=== PATIENT | female | born 1985 ===

== ENCOUNTER 2021-11-25 12:55 | Emergency (ER) | payer SELFPAY ==
[~2021-11-25] VITALS: Ht 157.5 cm; Wt 72.6 kg
--- NOTE | 2021-11-25 13:10 | ED Chest Pain ---
General Chief Complaint: Chest Pain Stated Complaint: CHEST PAIN Nursing Triage Note: PT TO RM 4 VIA WC W C/O CP SX APPROX 0900 MID CHEST, PAIN RELIEVED BY DRINKING MILK. PT A&OX4. Source: patient Exam Limitations: no limitations History of Present Illness Date Seen by Provider: Nov 25, 2021 Time Seen by Provider: 13:09 Initial Comments To ER by private vehicle from home with reports of central chest pain rated at 9 out of 10 that started at 9 AM this morning while at work. No fevers chills cough or shortness of breath. She occasionally has this at home and drinking milk helps. She has had this before while in the [facility] and was going to see a doctor but decided to just pray about it instead. She takes no medications. Timing/Duration: changing over time Severity/Quality: moderate, severe Location: central Radiation: no radiation Activities at Onset: none Prior CP/Workup: no prior chest pain ASA po SECURITY ATTENDANT: No NTG SL SECURITY ATTENDANT: No Associated Symptoms: denies symptoms Allergies and Home Medications Allergies Coded Allergies: No Known Drug Allergies (Unverified , 11/25/21) Patient Home Medication List Home Medication List Reviewed: Yes Review of Systems Review of Systems Constitutional: see HPI EENTM: No Symptoms Reported Respiratory: No Symptoms Reported Cardiovascular: See HPI, Chest Pain Gastrointestinal: No Symptoms Reported Genitourinary: No Symptoms Reported Musculoskeletal: no symptoms reported Skin: no symptoms reported Psychiatric/Neurological: No Symptoms Reported Endocrine: No Symptoms Reported Hematologic/Lymphatic: No Symptoms Reported Past Lgqxpbd-Plszig-Mlarrf Hx Patient Social History Tobacco Use?: No Use of E-Cig and/or Vaping dev: No Substance use?: No Alcohol Use?: No Immunizations Up To Date Influenza Vaccine Up-to-Date: No; Not Current First/Initial COVID19 Vaccinat: NONE Second COVID19 Vaccination Foreign: NONE Third COVID19 Vaccination Date: NONE 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 oz. kg; 29.00 BMI Method: General Appearance: No Apparent Distress, WD/WN HEENT: PERRL/EOMI, TMs Normal Neck: Full Range of Motion, Normal Inspection Respiratory: Lungs Clear, Normal Breath Sounds, No Accessory Muscle Use, No Respiratory Distress Cardiovascular: Regular Rate, Rhythm, Normal Peripheral Pulses Gastrointestinal: Normal Bowel Sounds, Non Tender, Soft Extremity: Normal Capillary Refill, Normal Inspection Neurologic/Psychiatric: Alert, Oriented x3 Skin: Normal Color, Warm/Dry Progress/Results/Core Measures Results/Orders Lab Results Laboratory Tests Test 11/25/21 13:12 Range/Units White Blood Count 9.1 4.3-11.0 10^3/uL Red Blood Count 4.87 3.80-5.11 10^6/uL Hemoglobin 13.3 11.5-16.0 g/dL Hematocrit 40 35-52 % Mean Corpuscular Volume 82 80-99 fL Mean Corpuscular Hemoglobin 27 25-34 pg Mean Corpuscular Hemoglobin Concent 33 32-36 g/dL Red Cell Distribution Width 11.9 10.0-14.5 % Platelet Count 345 130-400 10^3/uL Mean Platelet Volume 10.1 9.0-12.2 fL Immature Granulocyte % (Auto) 0 % Neutrophils (%) (Auto) 66 42-75 % Lymphocytes (%) (Auto) 24 12-44 % Monocytes (%) (Auto) 7 0-12 % Eosinophils (%) (Auto) 3 0-10 % Basophils (%) (Auto) 1 0-10 % Neutrophils # (Auto) 6.0 1.8-7.8 10^3/uL Lymphocytes # (Auto) 2.2 1.0-4.0 10^3/uL Monocytes # (Auto) 0.6 0.0-1.0 10^3/uL Eosinophils # (Auto) 0.3 0.0-0.3 10^3/uL Basophils # (Auto) 0.1 0.0-0.1 10^3/uL Immature Granulocyte # (Auto) 0.0 0.0-0.1 10^3/uL Prothrombin Time 13.7 12.2-14.7 SEC INR Comment 1.0 0.8-1.4 Activated Partial Thromboplast Time 30 24-35 SEC D-Dimer 0.44 0.00-0.49 UG/ML Sodium Level 139 135-145 MMOL/L Potassium Level 4.1 3.6-5.0 MMOL/L Chloride Level 103 98-107 MMOL/L Carbon Dioxide Level 25 21-32 MMOL/L Anion Gap 11 5-14 MMOL/L Blood Urea Nitrogen 12 7-18 MG/DL Creatinine 0.93 0.60-1.30 MG/DL Estimat Glomerular Filtration Rate 81 BUN/Creatinine Ratio 13 Glucose Level 143 H 70-105 MG/DL Calcium Level 9.2 8.5-10.1 MG/DL Corrected Calcium 9.2 8.5-10.1 MG/DL Magnesium Level 2.1 1.6-2.4 MG/DL Total Bilirubin 0.6 0.1-1.0 MG/DL Aspartate Amino Transf (AST/SGOT) 395 H 5-34 U/L Alanine Aminotransferase (ALT/SGPT) 222 H 0-55 U/L Alkaline Phosphatase 114 40-136 U/L Myoglobin 42.4 10.0-92.0 NG/ML Troponin I < 0.028 <0.028 NG/ML B-Type Natriuretic Peptide < 10.0 <100.0 PG/ML Total Protein 8.3 H 6.4-8.2 GM/DL Albumin 4.0 3.2-4.5 GM/DL My Orders Orders - DERECK GROSS APRN Ekg Tracing (11/25/21 12:59) Cbc With Automated Diff (11/25/21 13:04) Magnesium (11/25/21 13:04) Chest 1 View, Ap/Pa Only (11/25/21 13:04) Ekg Tracing (11/25/21 13:04) Comprehensive Metabolic Panel (11/25/21 13:04) Myoglobin Serum (11/25/21 13:04) Protime With Inr (11/25/21 13:04) Partial Thromboplastin Time (11/25/21 13:04) O2 (11/25/21 13:04) Monitor-Rhythm Ecg Trace Only (11/25/21 13:04) Lipid Panel (11/26/21 06:00) Ed Iv/Invasive Line Start (11/25/21 13:04) Bnp Hebert (11/25/21 13:04) Fibrin Degradation Products (11/25/21 13:04) Troponin I Hebert (11/25/21 13:04) Antacid Suspension (Mylanta Suspension (11/25/21 13:15) Lidocaine 2% Viscous 15 Ml (Xylocaine Vi (11/25/21 13:15) Medications Given in ED Current Medications Medications Dose Ordered Sig/Mana Route Start Time Stop Time Status Last Admin Dose Admin Al Hydrox/Mg Hydrox/Simethicone 30 ml ONCE ONCE PO 11/25/21 13:15 11/25/21 13:16 DC 11/25/21 13:22 30 ML Lidocaine HCl 15 ml ONCE ONCE PO 11/25/21 13:15 11/25/21 13:16 DC 11/25/21 13:22 15 ML Vital Signs/I&O 11/25/21 12:55 Temp 36.6 Pulse 64 Resp 20 B/P (MAP) 122/68 (86) Pulse Ox 98 O2 Delivery Room Air Blood Pressure Mean: 86 Departure Communication (Admissions) 1421-chest pain is gone. I will start her on a PPI. She will need to follow-up with primary care for the elevated LFTs. Impression Primary Impression: Esophagitis Disposition: HOME, SELF-CARE Condition: Stable Departure-Patient Inst. Decision time for Depature: 14:05 Referrals: [facility] (PCP/Family) Primary Care Physician Patient Instructions: Acid Reflux, Adult and Adolescent ED Scripts Pantoprazole Sodium (Pantoprazole Sodium) 40 Mg Tablet. 40 MG PO DAILY, #30 TAB Prov: DERECK GROSS APRN 11/25/21 Work/School Note: Work Release Form Date Seen in the Emergency Department: Nov 25, 2021 Return to Work: Nov 26, 2021 Restrictions: No Restrictions DERECK GROSS APRN Nov 25, 2021 13:10
[2021-11-25] MEDS ORDERED: ANTACID SUSP 30 ML UDC (MYLANTA) PO ONE (13:15)
[2021-11-25] MEDS ORDERED: LIDOCAINE 2% VISCOUS 15 ML UDC PO ONE (13:15)
[2021-11-25 13:24] LABS: BASOPHILS # (AUTO) 0.1 10^3/uL (0.0-0.1); BASOPHILS % (AUTO) 1 % (0-10); EOSINOPHILS # (AUTO) 0.3 10^3/uL (0.0-0.3); EOSINOPHILS % (AUTO) 3 % (0-10); HEMATOCRIT 40 % (35-52); HEMOGLOBIN 13.3 g/dL (11.5-16.0); LYMPHOCYTES # (AUTO) 2.2 10^3/uL (1.0-4.0); LYMPHOCYTES % (AUTO) 24 % (12-44); MEAN CORPUSCULAR HEMOGLOBIN 27 pg (25-34); MEAN CORPUSCULAR HGB CONC 33 g/dL (32-36); MEAN CORPUSCULAR VOLUME 82 fL (80-99); MEAN PLATELET VOLUME 10.1 fL (9.0-12.2); MONOCYTES # (AUTO) 0.6 10^3/uL (0.0-1.0); MONOCYTES % (AUTO) 7 % (0-12); NEUTROPHILS % (AUTO) 66 % (42-75); PLATELET COUNT 345 10^3/uL (130-400); WHITE BLOOD COUNT 9.1 10^3/uL (4.3-11.0)
[2021-11-25 13:34] LABS: POTASSIUM 4.1 MMOL/L (3.6-5.0)
[2021-11-25 13:35] LABS: CALCIUM 9.2 MG/DL (8.5-10.1)
[2021-11-25 13:36] LABS: TOTAL PROTEIN 8.3 GM/DL (6.4-8.2)
[2021-11-25 13:38] LABS: BILIRUBIN,TOTAL 0.6 MG/DL (0.1-1.0)
[2021-11-25 13:39] LABS: PROTHROMBIN TIME PATIENT 13.7 SEC (12.2-14.7)
[2021-11-25 13:40] LABS: CREATININE SERUM 0.93 MG/DL (0.60-1.30)
[2021-11-25 13:42] LABS: MAGNESIUM 2.1 MG/DL (1.6-2.4)
--- NOTE | 2021-11-25 13:53 | Diagnostic Imaging Report ---
EXAMINATION: Chest, 1 view. HISTORY: Chest pain. COMPARISON: None available. FINDINGS: Heart size and pulmonary vasculature are normal. The lungs are clear without consolidation, pleural effusion, or pneumothorax. The osseous structures are intact. IMPRESSION: No acute radiographic abnormality in the chest. Dictated by: Dictated on workstation # [id number]
[2021-11-25] MEDS ORDERED: PANT40TA52 PO (14:22)
[2021-11-25 14:45] VITALS: BP 114/69
== END 2021-11-25 14:40 | disposition home or self-care (01) ==
LOC: ER 12:56
DX: K20.90 Esophagitis, unspecified without bleeding (principal); Z28.310 Unvaccinated for COVID-19
CPT/HCPCS: 36415; 71045; 80053; 83735; 83874; 83880; 84484; 85025; 85379; 85610; 85730; 93005; 93041

== ENCOUNTER 2021-11-30 07:38 | Inpatient (IN) | payer BC ==
[~2021-11-30] VITALS: Ht 152.6 cm; Wt 76.2 kg
[~2021-11-30 07:38] MED LIST: PANT40TA52 PO
[2021-11-30] MEDS ORDERED: KETOROLAC 30 MG/ML VIAL IVP ONE (08:00)
[2021-11-30] MEDS ORDERED: NS IV 1000 ML 1,000 ML IV SCH ×2 (08:00→11:15)
[2021-11-30] MEDS ORDERED: ONDANSETRON 4 MG/2 ML (SDV) Z0FRAN IVP ONE (08:00)
--- NOTE | 2021-11-30 08:03 | ED Abdominal Pain ---
General Chief Complaint: Abdominal/GI Problems Stated Complaint: LOWER ABD PAIN Nursing Triage Note: ARRIVED VIA EMS FROM HOME WITH COMPLAINTS OF ABD PAIN X1 WEEK. ATTEMPT TO USE LANGUAGE LINE BUT HER LANGUAGE IS NOT AVAILABLE. 16 YEAR OLD DAUGHTER HELP IS LIMITED Exam Limitations: Language Barrier History of Present Illness Date Seen by Provider: Nov 30, 2021 Time Seen by Provider: 07:48 Initial Comments Patient is a 36-year-old Senegalese lady who presents to the emergency department today with a chief complaint of upper abdominal pain. Her 16yo daughter is with her and she speaks some limited Senegalese. She is unable to acurately provide a history of her mother. A friend was called who was able to provide a little bit better interpretation. Apparently her pain started in the middle of the night. She describes it as a "burning". Some nausea. No fevers. No chest pain, cough or shortness of breath. She states she has had some pain like this about 2 weeks ago when she was in the ER. Review of the medical record shows she was here for chest pain (her only prior visit). She reports she has no chronic medical problems - takes no daily medications. Only previous abdominal surgery was a . She does not use alcohol. Attend the [facility] walk in clinic but is not established with a primary care doctor. Denies diarrhea/black or bloody stools. No painful urination. On her menstrual cycle right now. All other ROS reviewed and negative except as stated. 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 oz. kg; 28.00 BMI Method: General Appearance: WD/WN, moderate distress HEENT: PERRL/EOMI Neck: normal inspection Respiratory: lungs clear, normal breath sounds, no respiratory distress Cardiovascular: regular rate, rhythm Gastrointestinal: normal bowel sounds, soft, guarding, tenderness (upper quadrants bilaterally) Extremities: normal range of motion, normal inspection, no calf tenderness Neurologic/Psychiatric: no motor/sensory deficits, alert, normal mood/affect, oriented x 3 Skin: normal color, warm/dry Progress/Results/Core Measures Results/Orders Lab Results Laboratory Tests Test 11/30/21 07:50 11/30/21 08:23 Range/Units White Blood Count 9.4 4.3-11.0 10^3/uL Red Blood Count 4.49 3.80-5.11 10^6/uL Hemoglobin 12.2 11.5-16.0 g/dL Hematocrit 37 35-52 % Mean Corpuscular Volume 82 80-99 fL Mean Corpuscular Hemoglobin 27 25-34 pg Mean Corpuscular Hemoglobin Concent 33 32-36 g/dL Red Cell Distribution Width 12.2 10.0-14.5 % Platelet Count 325 130-400 10^3/uL Mean Platelet Volume 10.5 9.0-12.2 fL Immature Granulocyte % (Auto) 0 % Neutrophils (%) (Auto) 69 42-75 % Lymphocytes (%) (Auto) 19 12-44 % Monocytes (%) (Auto) 7 0-12 % Eosinophils (%) (Auto) 4 0-10 % Basophils (%) (Auto) 0 0-10 % Neutrophils # (Auto) 6.5 1.8-7.8 10^3/uL Lymphocytes # (Auto) 1.8 1.0-4.0 10^3/uL Monocytes # (Auto) 0.6 0.0-1.0 10^3/uL Eosinophils # (Auto) 0.4 H 0.0-0.3 10^3/uL Basophils # (Auto) 0.0 0.0-0.1 10^3/uL Immature Granulocyte # (Auto) 0.0 0.0-0.1 10^3/uL Sodium Level 135 135-145 MMOL/L Potassium Level 4.1 3.6-5.0 MMOL/L Chloride Level 103 98-107 MMOL/L Carbon Dioxide Level 21 21-32 MMOL/L Anion Gap 11 5-14 MMOL/L Blood Urea Nitrogen 11 7-18 MG/DL Creatinine 0.80 0.60-1.30 MG/DL Estimat Glomerular Filtration Rate 97 BUN/Creatinine Ratio 14 Glucose Level 202 H 70-105 MG/DL Calcium Level 8.9 8.5-10.1 MG/DL Corrected Calcium 9.2 8.5-10.1 MG/DL Total Bilirubin 1.3 H 0.1-1.0 MG/DL Aspartate Amino Transf (AST/SGOT) 173 H 5-34 U/L Alanine Aminotransferase (ALT/SGPT) 195 H 0-55 U/L Alkaline Phosphatase 173 H 40-136 U/L Total Protein 7.9 6.4-8.2 GM/DL Albumin 3.6 3.2-4.5 GM/DL Triglycerides Level 69 <150 MG/DL Lipase 2290 H 8-78 U/L Urine Color RED H Urine Clarity SL CLOUDY Urine pH 7.0 5-9 Urine Specific [place] 1.025 H 1.016-1.022 Urine Protein 3+ H NEGATIVE Urine Glucose (UA) TRACE H NEGATIVE Urine Ketones TRACE H NEGATIVE Urine Nitrite POSITIVE H NEGATIVE Urine Bilirubin NEGATIVE NEGATIVE Urine Urobilinogen >=8.0 < = 1.0 MG/DL Urine Leukocyte Esterase 1+ H NEGATIVE Urine RBC (Auto) 3+ H NEGATIVE Urine RBC TNTC H /HPF Urine WBC 10-25 H /HPF Urine Squamous Epithelial Cells 5-10 /HPF Urine Crystals NONE /LPF Urine Bacteria LARGE H /HPF Urine Casts NONE /LPF Urine Mucus NEGATIVE /LPF Urine Culture Indicated YES My Orders Orders - RICARDO NAJERA MD Ed Iv/Invasive Line Start (11/30/21 08:00) Cbc With Automated Diff (11/30/21 08:00) Comprehensive Metabolic Panel (11/30/21 08:00) Ua Culture If Indicated (11/30/21 08:00) Urine Bedside (11/30/21 08:00) Ns Iv 1000 Ml (Sodium Chloride 0.9%) (11/30/21 08:00) Ketorolac Injection (Toradol Injection) (11/30/21 08:00) Ondansetron Injection (Zofran Injectio (11/30/21 08:00) Ct Abdomen/Pelvis Wo (11/30/21 08:00) Lipase (11/30/21 08:26) Urine Culture (11/30/21 08:23) Triglycerides (11/30/21 09:13) Us Gallbladder [id number] (11/30/21 09:13) Fentanyl Inj (Sublimaze Injection) (11/30/21 09:15) Medications Given in ED Current Medications Medications Dose Ordered Sig/Mana Route Start Time Stop Time Status Last Admin Dose Admin Fentanyl Citrate 50 mcg ONCE ONCE IVP 11/30/21 09:15 11/30/21 09:16 DC 11/30/21 09:27 50 MCG Ketorolac Tromethamine 15 mg ONCE ONCE IVP 11/30/21 08:00 11/30/21 08:02 DC 11/30/21 08:09 15 MG Ondansetron HCl 4 mg ONCE ONCE IVP 11/30/21 08:00 11/30/21 08:02 DC 11/30/21 08:09 4 MG Vital Signs/I&O 11/30/21 07:38 Temp 36.2 Pulse 68 Resp 16 B/P (MAP) 112/62 (79) Pulse Ox 97 O2 Delivery Room Air Blood Pressure Mean: 79 Progress Progress Note : Time: 09:27 Progress Note Patient's lipase is quite elevated - still with pain. transaminitis with a n ormal WBC. CT shows prominent pancreas with Gallstones and likely sludge. no sig amount of pericholecystic fluid. Will add GB US to ruleout acute cholecystitis with the pancreatitis. Added triglyceride levels. Diagnostic Imaging Diagonstic Imaging: CT Comments [facility] [place] NAME: MYLENE MCKEON [facility] REC#: [id number] PT STATUS: REG ER : 1985 PHYSICIAN: RICARDO NAJERA MD ADMIT DATE: 11/30/21/ER Draft Date of Exam:11/30/21 CT ABDOMEN/PELVIS WO PROCEDURE: CT abdomen and pelvis without contrast. TECHNIQUE: Multiple contiguous axial images were obtained through the abdomen and pelvis without the use of intravenous contrast. Auto Exposure Controls were utilized during the CT exam to meet ALARA standards for radiation dose reduction. INDICATION: Severe upper abdominal pain for one week. COMPARISON: None. DISCUSSION: Minimal atelectasis noted within the lung bases. Normal heart size. No pleural or pericardial fluid. There are mild inflammatory changes within the central mesentery within the upper abdomen. These appear to also involve the pancreatic body and, to a lesser degree, the head. Findings could be seen with acute uncomplicated pancreatitis in the appropriate clinical setting. Cholelithiasis is present. The liver, stomach, spleen, and adrenal glands are unremarkable. No renal stone or hydronephrosis. The aorta is normal in caliber. No evidence for appendicitis. Bladder is decompressed. The uterus is unremarkable. No obstruction or pneumatosis. No constipation. No osseous abnormality identified. IMPRESSION: 1. Inflammatory changes noted involving the pancreatic body and extending into the central mesenteric region, most likely represents acute uncomplicated pancreatitis. Recommend clinical correlation with lipase levels. 2. Cholelithiasis. Dictated on workstation # [id number] Dict: 11/30/21 0858 Trans: 11/30/[address] [facility] [id number] Interpreted by: XIANG STEPHENSON MD Electronically signed by: Diagonstic Imaging: Ultrasound Comments [facility] [place] [place] NAME: MYLENE MCKEON [facility] REC#: [id number] PT STATUS: REG ER : 1985 PHYSICIAN: RICARDO NAJERA MD ADMIT DATE: 11/30/21/ER Draft Date of Exam:11/30/21 US GALLBLADDER [id number] PROCEDURE: US Gallbladder. TECHNIQUE: Multiple real-time grayscale images were obtained over the right upper quadrant in various projections. INDICATION: Right upper quadrant pain. COMPARISON: None. DISCUSSION: Sonographic evaluation of the right upper quadrant was performed. The liver appears normal in echotexture and size. No hepatic mass identified. Numerous layering stones are noted within the dependent gallbladder. No gallbladder wall thickening or pericholecystic fluid. No evidence of intrahepatic biliary ductal dilatation. Common bile duct and pancreas are mostly obscured due to overlying bowel gas. The right kidney appears normal in echotexture and size without evidence of hydronephrosis or renal mass. The right kidney measures 10.8 cm. The IVC appears within normal limits. There is no ascites or abnormal bowel loops identified. No sonographic Alejandra sign was reported. IMPRESSION: 1. Cholelithiasis. No secondary inflammatory changes. Dictated on workstation # [id number] Dict: 11/30/21 1035 Trans: 11/30/[address] [facility] [id number] Interpreted by: XIANG STEPHENSON MD Electronically signed by: Departure Communication (Admissions) Time/Spoke to Admitting Phy: 10:[address] Avila Time/Spoke to Consulting Phy: 10:[address] Lee Impression Primary Impression: Acute pancreatitis Qualified Codes: K85.90 - Acute pancreatitis without necrosis or infection, unspecified Additional Impressions: Cholelithiasis Qualified Codes: K80.20 - Calculus of gallbladder without cholecystitis without obstruction Hyperglycemia, unspecified Disposition: ADMITTED INPATIENT Condition: Stable Admissions Decision to Admit Reason: Admit from ER (General) Decision to Admit/Date: Nov 30, 2021 Time/Decision to Admit Time: 10:52 Departure-Patient Inst. Referrals: [facility] (PCP/Family) Primary Care Physician RICARDO NAJERA MD Nov 30, 2021 08:03
[2021-11-30 08:09] LABS: BASOPHILS % (AUTO) 0 % (0-10); EOSINOPHILS # (AUTO) 0.4 10^3/uL (0.0-0.3); EOSINOPHILS % (AUTO) 4 % (0-10); HEMATOCRIT 37 % (35-52); HEMOGLOBIN 12.2 g/dL (11.5-16.0); LYMPHOCYTES # (AUTO) 1.8 10^3/uL (1.0-4.0); LYMPHOCYTES % (AUTO) 19 % (12-44); MEAN CORPUSCULAR HEMOGLOBIN 27 pg (25-34); MEAN CORPUSCULAR HGB CONC 33 g/dL (32-36); MEAN CORPUSCULAR VOLUME 82 fL (80-99); MEAN PLATELET VOLUME 10.5 fL (9.0-12.2); MONOCYTES # (AUTO) 0.6 10^3/uL (0.0-1.0); MONOCYTES % (AUTO) 7 % (0-12); NEUTROPHILS # (AUTO) 6.5 10^3/uL (1.8-7.8); NEUTROPHILS % (AUTO) 69 % (42-75); PLATELET COUNT 325 10^3/uL (130-400); WHITE BLOOD COUNT 9.4 10^3/uL (4.3-11.0)
[2021-11-30 08:12] LABS: ALBUMIN 3.6 GM/DL (3.2-4.5)
[2021-11-30 08:13] LABS: POTASSIUM 4.1 MMOL/L (3.6-5.0)
[2021-11-30 08:14] LABS: CALCIUM 8.9 MG/DL (8.5-10.1)
[2021-11-30 08:15] LABS: TOTAL PROTEIN 7.9 GM/DL (6.4-8.2)
[2021-11-30 08:17] LABS: BILIRUBIN,TOTAL 1.3 MG/DL (0.1-1.0)
[2021-11-30 08:19] LABS: CREATININE SERUM 0.8 MG/DL (0.60-1.30)
[2021-11-30 08:30] LABS: BILIRUBIN,URINE NEGATIVE (NEGATIVE); CLARITY,URINE SL CLOUDY; COLOR,URINE RED; GLUCOSE, URINE (UA) TRACE (NEGATIVE); KETONES,URINE TRACE (NEGATIVE); LEUKOCYTE ESTERASE ,URINE 1+ (NEGATIVE); NITRITE,URINE POSITIVE (NEGATIVE); PROTEIN,URINE 3+ (NEGATIVE)
[2021-11-30 08:38] LABS: BACTERIA,URINE LARGE /HPF; RBC,URINE TNTC /HPF
--- NOTE | 2021-11-30 09:08 | Diagnostic Imaging Report ---
PROCEDURE: CT abdomen and pelvis without contrast. TECHNIQUE: Multiple contiguous axial images were obtained through the abdomen and pelvis without the use of intravenous contrast. Auto Exposure Controls were utilized during the CT exam to meet ALARA standards for radiation dose reduction. INDICATION: Severe upper abdominal pain for one week. COMPARISON: None. DISCUSSION: Minimal atelectasis noted within the lung bases. Normal heart size. No pleural or pericardial fluid. There are mild inflammatory changes within the central mesentery within the upper abdomen. These appear to also involve the pancreatic body and, to a lesser degree, the head. Findings could be seen with acute uncomplicated pancreatitis in the appropriate clinical setting. Cholelithiasis is present. The liver, stomach, spleen, and adrenal glands are unremarkable. No renal stone or hydronephrosis. The aorta is normal in caliber. No evidence for appendicitis. Bladder is decompressed. The uterus is unremarkable. No obstruction or pneumatosis. No constipation. No osseous abnormality identified. IMPRESSION: 1. Inflammatory changes noted involving the pancreatic body and extending into the central mesenteric region, most likely represents acute uncomplicated pancreatitis. Recommend clinical correlation with lipase levels. 2. Cholelithiasis. Dictated by: Dictated on workstation # [id number]
[2021-11-30] MEDS ORDERED: fentaNYL INJ 100 MCG/2 ML AMP IVP ONE (09:15)
--- NOTE | 2021-11-30 10:42 | Diagnostic Imaging Report ---
PROCEDURE: US Gallbladder. TECHNIQUE: Multiple real-time grayscale images were obtained over the right upper quadrant in various projections. INDICATION: Right upper quadrant pain. COMPARISON: None. DISCUSSION: Sonographic evaluation of the right upper quadrant was performed. The liver appears normal in echotexture and size. No hepatic mass identified. Numerous layering stones are noted within the dependent gallbladder. No gallbladder wall thickening or pericholecystic fluid. No evidence of intrahepatic biliary ductal dilatation. Common bile duct and pancreas are mostly obscured due to overlying bowel gas. The right kidney appears normal in echotexture and size without evidence of hydronephrosis or renal mass. The right kidney measures 10.8 cm. The IVC appears within normal limits. There is no ascites or abnormal bowel loops identified. No sonographic Alejandra sign was reported. IMPRESSION: 1. Cholelithiasis. No secondary inflammatory changes. Dictated by: Dictated on workstation # [id number]
--- NOTE | 2021-11-30 11:03 | History & Physical-Hospitalist ---
History of Present Illness HPI/Chief Complaint CC: Pancreatitis with abnormal gallbladder HPI: This is a 36yoF from the [facility] who has a h/o DM who presents to the ER with abdominal pain and was found to have pancreatitis with abnormal gallbladder. Dr Lee requests her to stabilize and then choly will be necessary. IVF and pain meds and PPI initiated. Language barrier limits details. Source: patient, family, RN/MD, old records Exam Limitations: language barrier Date Seen 11/30/21 Time Seen by a Provider: 17:15 Attending Physician [facility] PCP Admitting Physician: Attending Physician: Referring Physician Date of Admission Home Medications & Allergies Home Medications Reviewed patient Home Medication Reconciliation performed by pharmacy medication reconciliations nuclear monitoring technician and/or nursing. Patients Allergies have been reviewed. Allergies Allergies Coded Allergies No Known Drug Allergies (Unverified11/25/21) Past Ygyvsew-Ulamov-Ldorzw Hx Patient Social History Marrital Status: single Employed/Student: unemployed Smoking Status: Never a Smoker Immunizations Up To Date First/Initial COVID19 Vaccinat: NONE Second COVID19 Vaccination Foreign: NONE Current Status Advance Directives: No Primary Language: Irish Preferred Spoken Language: Irish Past Medical History Diabetes, Non-Insulin dep Review of Systems Constitutional: see HPI Gastrointestinal: abdominal pain, loss of appetite, nausea, vomiting Physical Exam Physical Exam Vital Signs Vital Signs - First Documented 11/30/21 11/30/21 11/30/21 07:38 11:46 11:48 Temp 36.2 Pulse 68 Resp 16 B/P (MAP) 112/62 (79) Pulse Ox 97 O2 Delivery Room Air O2 Flow Rate 0.00 FiO2 21 Capillary Refill : Less Than 3 Seconds Height, Weight, BMI Height: '" Weight: lbs. oz. kg; 31.00 BMI Method: General Appearance: No Apparent Distress, Chronically ill, Obese Eyes: Right Eye Normal Inspection, Right Eye PERRL HEENT: PERRL/EOMI, Normal ENT Inspection, Pharynx Normal, Moist Mucous Membranes Neck: Full Range of Motion, Normal Inspection, Non Tender Respiratory: Chest Non Tender, Lungs Clear, Normal Breath Sounds, No Accessory Muscle Use, No Respiratory Distress Cardiovascular: Regular Rate, Rhythm, No Edema, No Gallop, No JVD, No Murmur, Normal Peripheral Pulses Gastrointestinal: Normal Bowel Sounds, No Organomegaly, No Pulsatile Mass, Soft, Tenderness Back: Normal Inspection, No CVA Tenderness, No Vertebral Tenderness Extremity: Normal Capillary Refill, Normal Inspection, Normal Range of Motion, Non Tender, No Calf Tenderness, No Pedal Edema Neurologic/Psychiatric: Alert, Oriented x3, No Motor/Sensory Deficits, Normal Mood/Affect Skin: Normal Color, Warm/Dry Lymphatic: No Adenopathy Results Results/Procedures Labs Laboratory Tests 11/30/21 07:50 Patient resulted labs reviewed. Assessment/Plan Admission Diagnosis Assessment: Acute pancreatitis Abnormal gallbladder on scans DM Elevated LFT's Plan: Pain meds IVF Monitor closely Admission Status: Inpatient Order (span 2 midnights) Reason for Inpatient Admission: pancreatitis KENNY KWAN DO Nov 30, 2021 11:03
[2021-11-30] MEDS ORDERED: MILK OF MAGNESIA 400 MG/5 ML 30 ML UDC PO PRN (11:15)
[2021-11-30] MEDS ORDERED: LACTULOSE SYRUP 10GM/15ML (ENULOSE) 30ML UDC PO PRN (11:15)
[2021-11-30] MEDS ORDERED: ONDANSETRON 4 MG (ZOFRAN) ORAL DISSOLVE TAB PO PRN (11:15)
[2021-11-30] MEDS ORDERED: ACETAMINOPHEN 325 MG TABLET PO PRN (11:15)
[2021-11-30] MEDS ORDERED: polyethylene glycoL POWDER 17 GM (MIRALAX) PACK PO PRN (11:15)
[2021-11-30] MEDS ORDERED: HYDROmorphone 2 MG/ML VIAL (DILAUDID) IV PRN (11:15)
[2021-11-30] MEDS ORDERED: ONDANSETRON 4 MG/2 ML (SDV) Z0FRAN IV PRN (11:15)
[2021-11-30] MEDS ORDERED: diphenhydrAMINE 25 MG TAB (BENADRYL) PO PRN (11:15)
[2021-11-30] MEDS ORDERED: PROMETHAZINE INJ 25 MG/ML (PHENERGAN) AMP IM PRN (11:15)
[2021-11-30] MEDS ORDERED: BISACODYL 10 MG SUPP (DULCOLAX) PR PRN (11:15)
[2021-11-30] MEDS ORDERED: CALCIUM CARBONATE 500 MG (TUMS) TAB.CHEW PO PRN (11:15)
[2021-11-30] MEDS ORDERED: diphenhydrAMINE 50 MG/ML INJ (BENADRYL) IVP PRN (11:15)
[2021-11-30] MEDS ORDERED: ANTACID SUSP 30 ML UDC (MYLANTA) PO PRN (11:15)
[2021-11-30] MEDS ORDERED: MELATONIN 3 MG TABLET PO PRN (11:15)
[2021-11-30 11:46] VITALS: BP 112/62
[2021-11-30 11:50] VITALS: BP 103/67
[2021-11-30] MEDS: METOCLOPRAMIDE INJ 10 MG/2 ML (REGLAN) IVP SCH ×3 (11:58→23:18)
[2021-11-30] MEDS: ENOXAPARIN 40 MG/0.4 ML (LOVENOX) SYR SC SCH ×2 (11:58→12:07)
--- NOTE | 2021-11-30 12:55 | Consultation - Surgery ---
JEOVANY BA 11/30/21 1255: History of Present Illness History of Present Illness Patient Consulted On(karson/time) 11/30/21 12:48 Time Seen by Provider: 12:30 History of Present Illness Pt is a 36F who presented to the ER this morning 11/30 with abdominal pain. She came to the hospital about one week ago with similar pain, but it has progressively gotten worse. When I reviewed the record her ER visit was for chest pain. She describes the abdominal pain as burning. Pain is diffuse in the abdomen but worse in the epigastric area. Pt states the pain radiates to her back diffusely. Lying down makes the pain more bearable while moving makes it worse. Pain is constant and rated 10/10. She is currently NPO. Last BM was 11/28 and last urination was the morning of 11/30. History was attained by interp retation from a relative on the phone. Allergies and Home Medications Allergies Coded Allergies: No Known Drug Allergies (Unverified , 11/25/21) Patient Home Medication List Home Medication List Reviewed: Yes Pantoprazole Sodium (Pantoprazole Sodium) 40 Mg Tablet., 40 MG PO DAILY Prescribed by: DERECK GROSS on 11/25/21 0922 Past Xtltbdr-Acrgra-Fbxrbe Hx Patient Social History Smoking Status: Never a Smoker Alcohol Use?: No Have you traveled recently?: No Surgeries History of Surgeries: Yes Surgeries: Section Respiratory History of Respiratory Disorde: No (no copd or asthma) Cardiovascular History of Cardiac Disorders: No (denied htn and PR) Gastrointestinal History of Gastrointestinal Di: Yes Gastrointestinal Disorders: Esophagitis (on pantroprazole) Endocrine History of Endocrine Disorders: No (pt denies being diabetic despite increased glucose values) Cancer History of Cancer: No (pt denies having ever had cancer) Family Medical History Significant Family History: Diabetes, Other Conditions/Hx (pt denies any family history of heart disease and cancer) Review of Systems-General Constitutional: No chills, No fever Respiratory: No short of breath, No wheezing Cardiovascular: chest pain (pt said she has slight chest pain, more closely located to epigastric area); No palpitations Gastrointestinal: abdominal pain (epigastric area, radiates to back); No nausea, No vomiting Genitourinary: No dysuria, No pain Musculoskeletal: back pain (pain radiates from epigastrium to back); No neck pain Skin: No change in color, No hx of skin cancer Psychiatric/Neurological: Denies Depressed (pt denied depression), Denies Other (pt denied suicidal ideation) Physical Exam-General Problems Physical Exam Vital Signs Vital Signs - First Documented 11/30/21 11/30/21 11/30/21 07:38 11:46 11:48 Temp 36.2 Pulse 68 Resp 16 B/P (MAP) 112/62 (79) Pulse Ox 97 O2 Delivery Room Air O2 Flow Rate 0.00 FiO2 21 Capillary Refill : Less Than 3 Seconds General Appearance: WD/WN, mild distress (in obvious abdominal pain) Eyes: Bilateral Eye EOMI HEENT: No scleral icterus (R), No scleral icterus (L) Neck: non-tender, supple; No lymphadenopathy (R), No lymphadenopathy (L) Respiratory: lungs clear, normal breath sounds, no accessory muscle use Cardiovascular: regular rate, rhythm, no edema, no murmur Peripheral Pulses: 2+ Radial Pulses (R), 2+ Radial Pulses (L) Gastrointestinal: normal bowel sounds, soft, tenderness (diffuse tenderness worse in epigastrium) Rectal: deferred Back: vertebral tenderness (pain radiating from front to back) Extremities: non-tender, no pedal edema, no calf tenderness Neurologic/Psychiatric: alert, oriented x 3; No facial droop Skin: normal color, warm/dry Lymphatic: no adenopathy (cervical) Data Review Labs Laboratory Tests 11/30/21 07:50: White Blood Count 9.4, Red Blood Count 4.49, Hemoglobin 12.2, Hematocrit 37, Mean Corpuscular Volume 82, Mean Corpuscular Hemoglobin 27, Mean Corpuscular Hem oglobin Concent 33, Red Cell Distribution Width 12.2, Platelet Count 325, Mean Platelet Volume 10.5, Immature Granulocyte % (Auto) 0, Neutrophils (%) (Auto) 69, Lymphocytes (%) (Auto) 19, Monocytes (%) (Auto) 7, Eosinophils (%) (Auto) 4, Basophils (%) (Auto) 0, Neutrophils # (Auto) 6.5, Lymphocytes # (Auto) 1.8, Monocytes # (Auto) 0.6, Eosinophils # (Auto) 0.4H, Basophils # (Auto) 0.0, Immature Granulocyte # (Auto) 0.0, Sodium Level 135, Potassium Level 4.1, Chloride Level 103, Carbon Dioxide Level 21, Anion Gap 11, Blood Urea Nitrogen 11, Creatinine 0.80, Estimat Glomerular Filtration Rate 97, BUN/Creatinine Ratio 14, Glucose Level 202H, Calcium Level 8.9, Corrected Calcium 9.2, Total Bilirubin 1.3H, Aspartate Amino Transf (AST/SGOT) 173H, Alanine Aminotransferase (ALT/SGPT) 195H, Alkaline Phosphatase 173H, Total Protein 7.9, Albumin 3.6, Triglycerides Level 69, Lipase 2290H 11/30/21 08:23: Urine Color REDH, Urine Clarity SL CLOUDY, Urine pH 7.0, Urine Specific [place] 1.025H, Urine Protein 3+H, Urine Glucose (UA) TRACEH, Urine Ketones TRACEH, Urine Nitrite POSITIVEH, Urine Bilirubin NEGATIVE, Urine Urobilinogen >=8.0, Urine Leukocyte Esterase 1+H, Urine RBC (Auto) 3+H, Urine RBC TNTCH, Urine WBC 10-25H, Urine Squamous Epithelial Cells 5-10, Urine Crystals NONE, Urine Bacteria LARGEH, Urine Casts NONE, Urine Mucus NEGATIVE, Urine Culture Indicated YES Assessment/Plan Assessment/Plan Assessment/Plan Pancreatitis likely secondary to stone lipase 2290, confirmed inflammation on CT abd/pelvis Cholelithiasis gallbladder us positive for cholelithiasis Transaminitis Hyperglycemia Plan: Pt is on IV fluids bumped to 250ml/hr and pain medication, when the lipase and pain are decreased cholecystectomy is recommended to prevent further episodes of gallstone pancreatitis. Dr. Avila has started sliding scale insulin for hyperglycemia. EDUARDO FARLEY DO 11/30/21 1335: History of Present Illness History of Present Illness Time Seen by Provider: 12:05 History of Present Illness Surgery asked to consult regarding Pancreatitis. HPI per ED: ARRIVED VIA EMS FROM HOME WITH COMPLAINTS OF ABD PAIN X1 WEEK. ATTEMPT TO USE LANGUAGE LINE BUT HER LANGUAGE IS NOT AVAILABLE. 16 YEAR OLD DAUGHTER HELP IS LIMITED Patient is a 36-year-old [place]ian lady who presents to the emergency department today with a chief complaint of upper abdominal pain. Her 16yo daughter is with her and she speaks some limited Algerian. She is unable to acurately provide a history of her mother. A friend was called who was able to provide a little bit better interpretation. Apparently her pain started in the middle of the night. She describes it as a "burning". Some nausea. No fevers. No chest pain, cough or shortness of breath. She states she has had some pain like this about 2 weeks ago when she was in the ER. Review of the medical record shows she was here for chest pain (her only prior visit). She reports she has no chronic medical problems - takes no daily medications. Only previous abdominal surgery was a . She does not use alcohol. Attend the [facility] walk in clinic but is not established with a primary care doctor. Denies diarrhea/black or bloody stools. No painful urination. On her menstrual cycle right now. When I spoke to pt, she called a friend to help translate. Still having abdominal pain, epigastric and shooting straight through to back. Now most foods make pain worse. Denied previous RUQ pain. Allergies and Home Medications Allergies Coded Allergies: No Known Drug Allergies (Unverified , 11/25/21) Patient Home Medication List Home Medication List Reviewed: Yes Pantoprazole Sodium (Pantoprazole Sodium) 40 Mg Tablet., 40 MG PO DAILY Prescribed by: DERECK GROSS on 11/25/21 1422 Past Gvdfdph-Cbgsgt-Mphxyj Hx Patient Social History Smoking Status: Never a Smoker Alcohol Use?: No Surgeries History of Surgeries: Yes Surgeries: Section Respiratory History of Respiratory Disorde: No (no copd or asthma) Cardiovascular History of Cardiac Disorders: No (denied htn and PR) Neurological History of Neurological Disord: No Genitourinary History of Genitourinary Disor: Yes Genitourinary Disorders: UTI-Chronic Gastrointestinal History of Gastrointestinal Di: Yes Gastrointestinal Disorders: Gastroesophageal Reflux (on pantroprazole) Musculoskeletal History of Musculoskeletal Dis: No Endocrine History of Endocrine Disorders: No (pt denies being diabetic; however, she has increased glucose values) HEENT History of HEENT Disorders: No Loss of Vision: Denies Hearing Impairment: Denies Cancer History of Cancer: No (pt denies having ever had cancer) Psychosocial History of Psychiatric Problem: No Reviewed Nursing Assessment Reviewed/Agree w Nursing PMH: Yes Family Medical History Significant Family History: Diabetes (mother and grandparents), Other Conditions/Hx (pt denies any family history of heart disease and cancer) Review of Systems-General Constitutional: No chills, No fever EENTM: No blurred vision, No mouth swelling, No epistaxis Respiratory: No cough, No dyspnea on exertion, No short of breath, No wheezing Cardiovascular: chest pain (pt said she has slight chest pain, more closely located to epigastric area- non cardiac); No palpitations Gastrointestinal: abdominal pain (epigastric area, radiates to back); No nausea, No vomiting Genitourinary: No dysuria, No hematuria Musculoskeletal: back pain (pain radiates from epigastrium to back); No neck pain Skin: No change in color, No change in hair/nails, No hx of skin cancer Psychiatric/Neurological: Denies Anxiety, Denies Depressed, Denies Seizure, Denies Other (pt denied suicidal ideation) Physical Exam-General Problems Physical Exam General Appearance: WD/WN, mild distress (in obvious abdominal pain) Eyes: Bilateral Eye PERRL, Bilateral Eye EOMI HEENT: pharynx normal; No scleral icterus (R), No scleral icterus (L) Neck: non-tender, supple Respiratory: lungs clear, normal breath sounds, no respiratory distress, no accessory muscle use Cardiovascular: regular rate, rhythm, no edema, no murmur Gastrointestinal: soft, tenderness (diffuse tenderness worse in epigastrium), hernia (small umbilical) Rectal: deferred Back: no CVA tenderness Extremities: non-tender, no pedal edema, no calf tenderness Neurologic/Psychiatric: alert, oriented x 3; No facial droop Skin: normal color, warm/dry Lymphatic: no adenopathy (neck, axilla) Data Review Radiology Date of Exam:11/30/21 CT ABDOMEN/PELVIS WO PROCEDURE: CT abdomen and pelvis without contrast. TECHNIQUE: Multiple contiguous axial images were obtained through the abdomen and pelvis without the use of intravenous contrast. Auto Exposure Controls were utilized during the CT exam to meet ALARA standards for radiation dose reduction. INDICATION: Severe upper abdominal pain for one week. COMPARISON: None. DISCUSSION: Minimal atelectasis noted within the lung bases. Normal heart size. No pleural or pericardial fluid. There are mild inflammatory changes within the central mesentery within the upper abdomen. These appear to also involve the pancreatic body and, to a lesser degree, the head. Findings could be seen with acute uncomplicated pancreatitis in the appropriate clinical setting. Cholelithiasis is present. The liver, stomach, spleen, and adrenal glands are unremarkable. No renal stone or hydronephrosis. The aorta is normal in caliber. No evidence for appendicitis. Bladder is decompressed. The uterus is unremarkable. No obstruction or pneumatosis. No constipation. No osseous abnormality identified. IMPRESSION: 1. Inflammatory changes noted involving the pancreatic body and extending into the central mesenteric region, most likely represents acute uncomplicated pancreatitis. Recommend clinical correlation with lipase levels. 2. Cholelithiasis. Dictated by: Dictated on workstation # [id number] Dict: 11/30/21 0858 Trans: 11/30/21 1324 [id number] Interpreted by: XIANG STEPHENSON MD Electronically signed by: XIANG STEPHENSON MD 11/30/21 1324 Date of Exam:11/30/21 US GALLBLADDER [id number] PROCEDURE: US Gallbladder. TECHNIQUE: Multiple real-time grayscale images were obtained over the right upper quadrant in various projections. INDICATION: Right upper quadrant pain. COMPARISON: None. DISCUSSION: Sonographic evaluation of the right upper quadrant was performed. The liver appears normal in echotexture and size. No hepatic mass identified. Numerous layering stones are noted within the dependent gallbladder. No gallbladder wall thickening or pericholecystic fluid. No evidence of intrahepatic biliary ductal dilatation. Common bile duct and pancreas are mostly obscured due to overlying bowel gas. The right kidney appears normal in echotexture and size without evidence of hydronephrosis or renal mass. The right kidney measures 10.8 cm. The IVC appears within normal limits. There is no ascites or abnormal bowel loops identified. No sonographic Alejandra sign was reported. IMPRESSION: 1. Cholelithiasis. No secondary inflammatory changes. Dictated by: Dictated on workstation # [id number] Dict: 11/30/21 1035 Trans: 11/30/21 1324 [id number] Interpreted by: XIANG STEPHENSON MD Electronically signed by: XIANG STEPHENSON MD 11/30/21 1324 Assessment/Plan Assessment/Plan Assessment/Plan Pancreatitis likely secondary to stone lipase 2290, confirmed inflammation on CT abd/pelvis Cholelithiasis gallbladder us positive for cholelithiasis Transaminitis Hyperglycemia UTI Plan: Pt is on IV fluids bumped to 250ml/hr and pain medication, when the lipase and pain are decreased cholecystectomy is recommended to prevent further episodes of gallstone pancreatitis. Dr. Avila has started sliding scale insulin for hyperglycemia. I personally reviewed the CT myself and discussed case with ED physician. Plan to remove gallbladder when pain is gone and lipase is coming down, must remain NPO until then. Supervisory-Addendum Brief Verification & Attestation Participated in pt care: history, MDM, physical Personally performed: exam, history, MDM, supervision of care Care discussed with: Medical Student Procedures: n/a Verification and Attestation of Medical Student E/M Service A medical student performed and documented this service. I then reviewed and verified all information documented by the medical student and made modifications to such information, when appropriate. I personally performed a physical exam, medical decision making and then discussed any differences between the notes and made revisions as necessary to create one note. Eduardo Farley , 11/30/21 , 13:47 JEOVANY BA Nov 30, 2021 12:55 EDUARDO FARLEY DO Nov 30, 2021 13:35
[2021-11-30] MEDS: NS IV 1000 ML 1,000 ML IV SCH ×2 (13:53→17:36)
[2021-11-30] MEDS ORDERED: RT-ALBUTEROL SULF 2.5 MG/3 ML PRE-MIX VIAL INH PRN (14:00)
[2021-11-30] MEDS ORDERED: inSUlin ASPART (NovoLOG) 1 UNIT/0.01 ML (CHARGE PER UNIT) SC SCH (16:00)
[2021-11-30 17:00] VITALS: BP 103/65
[2021-11-30] MEDS: inSUlin ASPART (NovoLOG) 1 UNIT/0.01 ML (CHARGE PER UNIT) SC SCH ×3 (17:22→23:23)
[2021-11-30 19:33] VITALS: BP 105/64
[2021-11-30] MEDS: SENNOSIDES 8.6 MG (SENOKOT) TAB PO SCH (20:44)
[2021-11-30] MEDS: DOCUSATE SODIUM 100 MG (COLACE) CAP PO SCH (20:44)
[2021-11-30] MEDS: D5 NS 1000 ML IV SOLUTION 1,000 ML IV SCH (20:45)
[2021-11-30 23:08] VITALS: BP 110/74
[2021-12-01 03:31] VITALS: BP 109/69
[2021-12-01] MEDS: inSUlin ASPART (NovoLOG) 1 UNIT/0.01 ML (CHARGE PER UNIT) SC SCH ×4 (05:39→23:16)
[2021-12-01] MEDS: D5 NS 1000 ML IV SOLUTION 1,000 ML IV SCH ×2 (06:00→14:53)
[2021-12-01] MEDS: METOCLOPRAMIDE INJ 10 MG/2 ML (REGLAN) IVP SCH ×4 (06:00→23:14)
[2021-12-01 06:16] LABS: BASOPHILS % (AUTO) 0 % (0-10); EOSINOPHILS # (AUTO) 0.4 10^3/uL (0.0-0.3); EOSINOPHILS % (AUTO) 4 % (0-10); HEMATOCRIT 33 % (35-52); HEMOGLOBIN 10.6 g/dL (11.5-16.0); LYMPHOCYTES # (AUTO) 1.8 10^3/uL (1.0-4.0); LYMPHOCYTES % (AUTO) 19 % (12-44); MEAN CORPUSCULAR HEMOGLOBIN 27 pg (25-34); MEAN CORPUSCULAR HGB CONC 32 g/dL (32-36); MEAN CORPUSCULAR VOLUME 85 fL (80-99); MEAN PLATELET VOLUME 10.4 fL (9.0-12.2); MONOCYTES # (AUTO) 0.6 10^3/uL (0.0-1.0); MONOCYTES % (AUTO) 7 % (0-12); NEUTROPHILS # (AUTO) 6.5 10^3/uL (1.8-7.8); NEUTROPHILS % (AUTO) 69 % (42-75); PLATELET COUNT 307 10^3/uL (130-400); WHITE BLOOD COUNT 9.4 10^3/uL (4.3-11.0)
[2021-12-01 06:23] LABS: ALBUMIN 3.1 GM/DL (3.2-4.5); POTASSIUM 3.6 MMOL/L (3.6-5.0)
[2021-12-01 06:25] LABS: TOTAL PROTEIN 6.6 GM/DL (6.4-8.2)
[2021-12-01 06:27] LABS: BILIRUBIN,TOTAL 0.8 MG/DL (0.1-1.0)
[2021-12-01 06:29] LABS: CREATININE SERUM 0.76 MG/DL (0.60-1.30)
[2021-12-01 07:32] VITALS: BP 117/60
--- NOTE | 2021-12-01 07:56 | Progress Note - Hospitalist ---
Subjective HPI/CC On Admission Date Seen by Provider: Dec 01, 2021 Time Seen by Provider: 10:00 CC: Pancreatitis with abnormal gallbladder HPI: This is a 36yoF from the [facility] who has a h/o DM who presents to the ER with abdominal pain and was found to have pancreatitis with abnormal gallbladder. Dr Lee requests her to stabilize and then choly will be necessary. IVF and pain meds and PPI initiated. Language barrier limits details. Subjective/Events-last exam Doing well Less pain Increased hunger Lipase trended down No nausea Review of Systems General: Fatigue, Malaise Objective Exam Vital Signs Vital Signs Date Time Temp Pulse Resp B/P (MAP) Pulse Ox O2 Delivery O2 Flow Rate FiO2 12/01/21 15:13 36.8 60 18 100/53 (69) 97 Room Air 12/01/21 07:52 0.00 11/30/21 11:46 21 Capillary Refill : Less Than 3 Seconds General Appearance: No Apparent Distress, WD/WN, Chronically ill, Obese Respiratory: Lungs Clear, Normal Breath Sounds Cardiovascular: Regular Rate, Rhythm Neurologic/Psychiatric: Alert, Oriented x3, No Motor/Sensory Deficits, Normal Mood/Affect Results/Procedures Lab Laboratory Tests 12/01/21 04:58 Patient resulted labs reviewed. Assessment/Plan Assessment and Plan Assess & Plan/Chief Complaint Assessment: Acute pancreatitis Abnormal gallbladder on scans DM Elevated LFT's Plan: Pain meds IVF Monitor closely KENNY KWAN DO Dec 01, 2021 07:56
--- NOTE | 2021-12-01 08:21 | Progress Note - Surgery ---
JEOVANY BA 12/01/21 0821: Subjective Date Seen by a Provider: Dec 01, 2021 Time Seen by a Provider: 08:16 Subjective/Events-last exam Pt is lyng in bed and is responsive to my questions. She called a relative on the phone to translate. She reports improvement of epigastric pain, could not give a number scale, said she feels fine. She denied any pain radiation to the back today. Pt has been NPO for approximately 32 hours. She reports that she was able to get up to go to the bathroom to urinate this AM, but cannot recall her last BM. She denies any other complaints such as N/V, chest pain, or shortness of breath. Review of Systems General: No Chills, No Night Sweats HEENT: No Head Aches Pulmonary: No Dyspnea, No Cough Cardiovascular: No: Chest Pain, Orthopnea Gastrointestinal: No: Nausea, Vomiting Musculoskeletal: No: neck pain, back pain Objective Exam Vital Signs Date Time Temp Pulse Resp B/P (MAP) Pulse Ox O2 Delivery O2 Flow Rate FiO2 12/01/21 07:52 Room Air 0.00 12/01/21 07:32 37.0 69 18 117/60 (79) 95 Room Air 12/01/21 07:00 58 12/01/21 03:31 37.2 69 18 109/69 (82) 95 Room Air 12/01/21 01:00 61 11/30/21 23:08 36.7 58 18 110/74 (86) 94 Room Air 11/30/21 20:00 Room Air 11/30/21 19:33 37.0 60 18 105/64 (78) 95 Room Air 11/30/21 19:00 64 11/30/21 17:00 36.8 58 18 103/65 (78) 97 Room Air 11/30/21 12:33 53 11/30/21 12:00 98 Room Air 0.00 11/30/21 11:50 36.5 55 18 103/67 (79) 98 Room Air 11/30/21 11:48 97 Room Air 0.00 11/30/21 11:46 36.2 68 97 21 11/30/21 11:20 58 16 98/66 97 Room Air I & O 12/01/21 07:00 Intake Total 2040 ml Balance 2040 ml Capillary Refill : Less Than 3 Seconds General Appearance: No Apparent Distress, Chronically ill, Obese HEENT: PERRL/EOMI, Moist Mucous Membranes; No Scleral Icterus (L), No Scleral Icterus (R) Neck: Non Tender, Supple Respiratory: Chest Non Tender, Lungs Clear, Normal Breath Sounds, No Accessory Muscle Use, No Respiratory Distress Cardiovascular: Regular Rate, Rhythm, No Murmur Peripheral Pulses: 2+ Radial Pulses (R), 2+ Radial Pulses (L) Gastrointestinal: soft, tenderness (diffuse tenderness worse in epigastrium, much improved today- no pain), hernia (small umbilical) Extremity: Non Tender, No Calf Tenderness, No Pedal Edema Neurologic/Psychiatric: Alert, Oriented x3, Normal Mood/Affect; No Facial Droop Skin: Normal Color, Warm/Dry Lymphatic: No Adenopathy Results Lab Laboratory Tests 11/30/21 08:23: Urine Color REDH, Urine Clarity SL CLOUDY, Urine pH 7.0, Urine Specific [place] 1.025H, Urine Protein 3+H, Urine Glucose (UA) TRACEH, Urine Ketones TRACEH, Urine Nitrite POSITIVEH, Urine Bilirubin NEGATIVE, Urine Urobilinogen >=8.0, Urine Leukocyte Esterase 1+H, Urine RBC (Auto) 3+H, Urine RBC TNTCH, Urine WBC 10-25H, Urine Squamous Epithelial Cells 5-10, Urine Crystals NONE, Urine Bacteria LARGEH, Urine Casts NONE, Urine Mucus NEGATIVE, Urine Culture Indicated YES 11/30/21 17:05: Glucometer 99 11/30/21 23:11: Glucometer 133H 12/01/21 04:58: White Blood Count 9.4, Red Blood Count 3.89, Hemoglobin 10.6L, Hematocrit 33L, Mean Corpuscular Volume 85, Mean Corpuscular Hemoglobin 27, Mean Corpuscular Hemoglobin Concent 32, Red Cell Distribution Width 12.1, Platelet Count 307, Mean Platelet Volume 10.4, Immature Granulocyte % (Auto) 0, Neutrophils (%) (Auto) 69, Lymphocytes (%) (Auto) 19, Monocytes (%) (Auto) 7, Eosinophils (%) (Auto) 4, Basophils (%) (Auto) 0, Neutrophils # (Auto) 6.5, Lymphocytes # (Auto) 1.8, Monocytes # (Auto) 0.6, Eosinophils # (Auto) 0.4H, Basophils # (Auto) 0.0, Immature Granulocyte # (Auto) 0.0, Sodium Level 135, Potassium Level 3.6, Chloride Level 107, Carbon Dioxide Level 22, Anion Gap 6, Blood Urea Nitrogen 9, Creatinine 0.76, Estimat Glomerular Filtration Rate 103, BUN/Creatinine Ratio 12, Glucose Level 159H, Calcium Level 8.0L, Corrected Calcium 8.7, Total Bilirubin 0.8, Aspartate Amino Transf (AST/SGOT) 66H, Alanine Aminotransferase (ALT/SGPT) 138H, Alkaline Phosphatase 137H, Total Protein 6.6, Albumin 3.1L, Lipase 92H Assessment/Plan Assessment/Plan Assessment/Plan Pancreatitis likely secondary to stone lipase 2290, down to 92 today. confirmed inflammation on CT abd/pelvis Cholelithiasis gallbladder us positive for cholelithiasis Transaminitis improvement in AST, ALT, Alk phos today Hyperglycemia 159 this morning UTI Plan: Pt is on IV 250ml/hr and pain medication, Lipase and pain levels are both decreased today, NPO for 32 hrs, will consider timing of cholecystectomy to prevent future episodes of gallstone pancreatitis. Sliding scale insulin for hyperglycemia. Improvement in liver enzymes this morning. I personally reviewed the CT myself and discussed case with ED physician. Plan to remove gallbladder when pain is gone and lipase is coming down, must remain NPO until then. MARCELINO LEE DO 12/01/21 1354: Subjective Time Seen by a Provider: 12:29 Subjective/Events-last exam Pt seen and examined, she called her friend to interpret. Pt is not having any pain and is hungry. Review of Systems General: No Chills, No Night Sweats HEENT: No Head Aches Pulmonary: No Dyspnea, No Cough Cardiovascular: No: Chest Pain, Orthopnea Gastrointestinal: No: Nausea, Vomiting Musculoskeletal: No: neck pain, back pain Objective Exam General Appearance: No Apparent Distress, Obese HEENT: PERRL/EOMI, Moist Mucous Membranes; No Scleral Icterus (L), No Scleral Icterus (R) Respiratory: Lungs Clear, Normal Breath Sounds, No Accessory Muscle Use, No Respiratory Distress Cardiovascular: Regular Rate, Rhythm, No Murmur Gastrointestinal: non tender, soft, no organomegaly, hernia (small umbilical) Extremity: No Calf Tenderness, No Pedal Edema Neurologic/Psychiatric: Alert, Oriented x3, Normal Mood/Affect Skin: Normal Color, Warm/Dry Assessment/Plan Assessment/Plan Assessment/Plan Pancreatitis likely secondary to cholelithiasis lipase 2290, down to 92 today. confirmed inflammation on CT abd/pelvis Cholelithiasis gallbladder us positive for cholelithiasis Transaminitis improvement in AST, ALT, Alk phos today Hyperglycemia 159 this morning UTI Plan: Pt is to decrease IV fluids to 150ml/hr, pain medication as needed and will try clears today. Lipase and pain levels are both decreased today, if she tolerates clears without pain will plan on cholecystectomy tomorrow afternoon. Discussed the procedure with pt; risks and complications not limited to pain, bleeding, infection, scar, damage to bowel or bile ducts and need for further procedure. All questions answered to her satisfaction. Will make her NPO after midnight and get consent for Laparoscopic Cholecystectomy with possible cholangiogram, possible open and all other indicated procedures. Supervisory-Addendum Brief Verification & Attestation Participated in pt care: history, MDM, physical Personally performed: exam, history, MDM, supervision of care Care discussed with: Medical Student Procedures: n/a Verification and Attestation of Medical Student E/M Service A medical student performed and documented this service. I then reviewed and verified all information documented by the medical student and made modifications to such information, when appropriate. I personally performed a physical exam, medical decision making and then discussed any differences between the notes and made revisions as necessary to create one note. Marcelino Lee , 12/01/21 , 13:54 JEOVANY BA Dec 01, 2021 08:21 MARCELINO LEE DO Dec 01, 2021 13:54
[2021-12-01] MEDS: PANTOPRAZOLE 40 MG (PROTONIX) VIAL IV SCH (08:38)
[2021-12-01] MEDS: SENNOSIDES 8.6 MG (SENOKOT) TAB PO SCH ×2 (08:41→20:06)
[2021-12-01] MEDS: DOCUSATE SODIUM 100 MG (COLACE) CAP PO SCH ×2 (08:41→20:06)
[2021-12-01 11:08] VITALS: BP 121/62
[2021-12-01] MEDS: ENOXAPARIN 40 MG/0.4 ML (LOVENOX) SYR SC SCH (11:22)
[2021-12-01 15:13] VITALS: BP 100/53
[2021-12-01 19:15] VITALS: BP 118/60
[2021-12-02] VITALS (14 sets, daily range): BP systolic 100–119; BP diastolic 52–78
[2021-12-02] MEDS: D5 NS 1000 ML IV SOLUTION 1,000 ML IV SCH ×2 (04:02→15:17)
[2021-12-02] MEDS: METOCLOPRAMIDE INJ 10 MG/2 ML (REGLAN) IVP SCH ×3 (05:27→17:51)
[2021-12-02] MEDS: inSUlin ASPART (NovoLOG) 1 UNIT/0.01 ML (CHARGE PER UNIT) SC SCH ×3 (05:27→17:48)
[2021-12-02 05:37] LABS: BASOPHILS % (AUTO) 0 % (0-10); EOSINOPHILS # (AUTO) 0.5 10^3/uL (0.0-0.3); EOSINOPHILS % (AUTO) 7 % (0-10); HEMATOCRIT 34 % (35-52); HEMOGLOBIN 10.9 g/dL (11.5-16.0); LYMPHOCYTES # (AUTO) 1.9 10^3/uL (1.0-4.0); LYMPHOCYTES % (AUTO) 26 % (12-44); MEAN CORPUSCULAR HEMOGLOBIN 27 pg (25-34); MEAN CORPUSCULAR HGB CONC 32 g/dL (32-36); MEAN CORPUSCULAR VOLUME 84 fL (80-99); MONOCYTES # (AUTO) 0.5 10^3/uL (0.0-1.0); MONOCYTES % (AUTO) 7 % (0-12); NEUTROPHILS # (AUTO) 4.3 10^3/uL (1.8-7.8); NEUTROPHILS % (AUTO) 60 % (42-75); PLATELET COUNT 337 10^3/uL (130-400); WHITE BLOOD COUNT 7.3 10^3/uL (4.3-11.0)
[2021-12-02 05:51] LABS: ALBUMIN 3.3 GM/DL (3.2-4.5); POTASSIUM 3.6 MMOL/L (3.6-5.0)
[2021-12-02 05:52] LABS: CALCIUM 8.5 MG/DL (8.5-10.1)
[2021-12-02 05:54] LABS: TOTAL PROTEIN 7.1 GM/DL (6.4-8.2)
[2021-12-02 05:55] LABS: BILIRUBIN,TOTAL 0.6 MG/DL (0.1-1.0)
[2021-12-02 05:57] LABS: CREATININE SERUM 0.78 MG/DL (0.60-1.30)
--- NOTE | 2021-12-02 07:12 | Progress Note - Surgery ---
JEOVANY BA 12/02/2112: Subjective Date Seen by a Provider: Dec 02, 2021 Time Seen by a Provider: 07:07 Subjective/Events-last exam Pt is lying comfortably in bed with no complaints of pain. She was unable to get a hold of the resource manager forester on the phone, so the language barrier may have interfer red with getting her events from overnight. She reports no abdominal pain or fever. She denied any other complaints of N/V. Reportedly voided and had a BM this morning. I was unable to obtain if she had eaten or not, but she was made npo for surgery last night. Review of Systems General: No Chills, No Night Sweats HEENT: No Head Aches, No Visual Changes Pulmonary: No Dyspnea, No Cough Cardiovascular: No: Chest Pain, Palpitations Gastrointestinal: No: Nausea, Vomiting, Abdominal Pain Genitourinary: No Dysuria, No Hematuria Neurological: No: Change in speech Objective Exam Vital Signs Date Time Temp Pulse Resp B/P (MAP) Pulse Ox O2 Delivery O2 Flow Rate FiO2 12/02/21 03:55 49 12/02/21 03:41 36.6 82 16 107/63 (78) 97 Room Air 12/02/21 01:00 56 12/02/21 00:03 36.7 72 16 115/60 (78) 97 Room Air 12/01/21 20:05 Room Air 12/01/21 19:15 37.0 57 18 118/60 (79) 99 Room Air 12/01/21 19:00 56 12/01/21 15:13 36.8 60 18 100/53 (69) 97 Room Air 12/01/21 12:34 58 12/01/21 11:08 37.0 71 18 121/62 (81) 96 Room Air 12/01/21 08:00 95 Room Air 12/01/21 07:52 Room Air 0.00 12/01/21 07:32 37.0 69 18 117/60 (79) 95 Room Air I & O 12/02/21 07:00 Intake Total 2300 ml Output Total 750 ml Balance 1550 ml Capillary Refill : Less Than 3 Seconds General Appearance: No Apparent Distress, WD/WN, Obese HEENT: PERRL/EOMI, Moist Mucous Membranes; No Scleral Icterus (L), No Scleral Icterus (R) Neck: Non Tender, Supple; No Lymphadenopathy (L), No Lymphadenopathy (R) Respiratory: Lungs Clear, Normal Breath Sounds; No Wheezing Cardiovascular: Regular Rate, Rhythm, No Murmur Peripheral Pulses: 2+ Radial Pulses (R), 2+ Radial Pulses (L) Gastrointestinal: non tender, soft, no organomegaly, hernia (small umbilical) Extremity: No Calf Tenderness, No Pedal Edema Neurologic/Psychiatric: Alert, Oriented x3, Normal Mood/Affect Skin: Normal Color, Warm/Dry Lymphatic: No Adenopathy (cervical) Results Lab Laboratory Tests 12/01/21 11:05: Glucometer 147H 12/01/21 17:10: Glucometer 134H 12/01/21 23:15: Glucometer 133H 12/02/21 05:10: White Blood Count 7.3, Red Blood Count 4.07, Hemoglobin 10.9L, Hematocrit 34L, Mean Corpuscular Volume 84, Mean Corpuscular Hemoglobin 27, Mean Corpuscular Hemoglobin Concent 32, Red Cell Distribution Width 11.8, Platelet Count 337, Mean Platelet Volume 10.0, Immature Granulocyte % (Auto) 0, Neutrophils (%) (Auto) 60, Lymphocytes (%) (Auto) 26, Monocytes (%) (Auto) 7, Eosinophils (%) (Auto) 7, Basophils (%) (Auto) 0, Neutrophils # (Auto) 4.3, Lymphocytes # (Auto) 1.9, Monocytes # (Auto) 0.5, Eosinophils # (Auto) 0.5H, Basophils # (Auto) 0.0, Immature Granulocyte # (Auto) 0.0, Sodium Level 135, Potassium Level 3.6, Chlor shelley Level 106, Carbon Dioxide Level 23, Anion Gap 6, Blood Urea Nitrogen 7, Creatinine 0.78, Estimat Glomerular Filtration Rate 100, BUN/Creatinine Ratio 9, Glucose Level 157H, Calcium Level 8.5, Corrected Calcium 9.1, Total Bilirubin 0.6, Aspartate Amino Transf (AST/SGOT) 31, Alanine Aminotransferase (ALT/SGPT) 100H, Alkaline Phosphatase 143H, Total Protein 7.1, Albumin 3.3, Lipase 61 12/02/21 05:19: Glucometer 153H Microbiology 11/30/21 Urine Culture - Final, Complete Gram Pos Mixed Bacterial Elayne Assessment/Plan Assessment/Plan Assessment/Plan Pancreatitis likely secondary to cholelithiasis lipase 2290, down to 61. confirmed inflammation on CT abd/pelvis Cholelithiasis gallbladder us positive for cholelithiasis Transaminitis improvement in AST, ALT, Alk phos increased to 143 from 137 yesterday Hyperglycemia 153 this morning UTI Plan: Decreasing lipase levels and no pain on exam. Planning on surgery this afternoon to prevent further episodes of gallstone pancreatitis. Dr. Lee discussed the procedure with pt; risks and complications not limited to pain, bleeding, infection, scar, damage to bowel or bile ducts and need for further procedure. All questions answered to her satisfaction. Ordered NPO after midnight and get consent for Laparoscopic Cholecystectomy with possible cholangiogram, possible open and all other indicated procedures. EDUARDO LEE DO 12/02/21 1217: Subjective Time Seen by a Provider: 11:39 Subjective/Events-last exam Pt seen and examined, no changes and denies pain. Tolerating clears without problems. Review of Systems Cardiovascular: No: Chest Pain, Palpitations Gastrointestinal: No: Nausea, Vomiting, Abdominal Pain Objective Exam General Appearance: No Apparent Distress, Obese Respiratory: Lungs Clear, Normal Breath Sounds Cardiovascular: Regular Rate, Rhythm, No Murmur Gastrointestinal: non tender, soft, no organomegaly, hernia (small umbilical) Assessment/Plan Assessment/Plan Assessment/Plan Cholelithiasis - plan Lap destiney with IOC today Pancreatitis - resolved Transaminitis Hyperglycemia - 153 this morning UTI Plan to OR today for Lap destiney, consent signed, pt with no questions. Supervisory-Addendum Brief Verification & Attestation Participated in pt care: history, MDM, physical Personally performed: exam, history, MDM, supervision of care Care discussed with: Medical Student Procedures: n/a Verification and Attestation of Medical Student E/M Service A medical student performed and documented this service. I then reviewed and verified all information documented by the medical student and made modifications to such information, when appropriate. I personally performed a physical exam, medical decision making and then discussed any differences between the notes and made revisions as necessary to create one note. Eduardo Lee , 12/02/21 , 12:17 JEOVANY BA Dec 02, 2021 07:12 EDUARDO LEE DO Dec 02, 2021 12:17
[2021-12-02] MEDS: SENNOSIDES 8.6 MG (SENOKOT) TAB PO SCH ×2 (08:28→20:49)
[2021-12-02] MEDS: DOCUSATE SODIUM 100 MG (COLACE) CAP PO SCH ×2 (08:28→20:49)
[2021-12-02] MEDS: PANTOPRAZOLE 40 MG (PROTONIX) VIAL IV SCH (08:34)
[2021-12-02] MEDS ORDERED: PANT40TA52 PO (08:40)
[2021-12-02] MEDS: ENOXAPARIN 40 MG/0.4 ML (LOVENOX) SYR SC SCH (11:06)
[2021-12-02] MEDS ORDERED: LIDOCAINE/EPI 2% 1:200,00 (XYLOCAINE) 10 ML VIAL ONE (11:24)
[2021-12-02] MEDS ORDERED: proPOfol 200 MG/20 ML (DIPRIVAN) VIAL IV ONE (11:48)
[2021-12-02] MEDS ORDERED: SEVOFLURANE (ULTANE) 15 ML INHAL SOLN ONE ×2 (11:48→13:30)
[2021-12-02] MEDS ORDERED: LIDOCAINE PF 2% 5 ML (XYLOCAINE) VIAL ONE (11:48)
[2021-12-02] MEDS ORDERED: ROCURONIUM 10 MG/ML 5 ML SYRINGE IV ONE (11:48)
[2021-12-02] MEDS ORDERED: ONDANSETRON 4 MG/2 ML (SDV) Z0FRAN ONE ×2 (11:48→14:26)
[2021-12-02] MEDS ORDERED: fentaNYL INJ 100 MCG/2 ML AMP ONE (11:48)
[2021-12-02] MEDS ORDERED: MIDAZOLAM 2 MG/2 ML (VERSED) VIAL ONE (11:49)
--- NOTE | 2021-12-02 11:55 | Progress Note - Hospitalist ---
DELPHINEORESTES 12/02/21 1155: Subjective HPI/CC On Admission Date Seen by Provider: Dec 02, 2021 Time Seen by Provider: 11:50 CC: Pancreatitis with abnormal gallbladder HPI: This is a 36yoF h/o DM who presents to the ER with abdominal pain and was found to have pancreatitis with abnormal gallbladder. Patient is laying comfortably in bed. Encounter limited by language barrier, patient has relative translating through the phone. Pt denies any current abd pain, nausea, or vomiting. Pt's lipase and WBC have improved from yesterday. Pt is scheduled for a cholescytecomy today. Hospital Course: 36 yo F presented to the ED on 11/30 with c/o 12/09 diffuse postprandial abd pain that radiated to her chest that started 1 week ago and has been worsening. Pt had a CT ABD/Pelvis on 11/30 that showed acute uncomplicated pancreatitis with cholelithiasis. Pt was admitted for acute pancreatitis and cholelithiasis. Work up found an elevated lipase, WBC, and AST/ALT and ALP. Pt was placed on IVF, oxycodone (10mg prn), hydromorphone (0.5mg prn), and pantoprazole (40mg) to stabilize for cholescytecomy today. Pt's lipase, WBC, AST/ALT and ALP have all trended down and patient currently denies any pain. Review of Systems General: No Chills, No Night Sweats HEENT: No Head Aches, No Visual Changes Pulmonary: No Dyspnea, No Cough Cardiovascular: No: Chest Pain, Palpitations Gastrointestinal: No: Nausea, Vomiting, Abdominal Pain Genitourinary: No Dysuria, No Frequency Musculoskeletal: No: neck pain, shoulder pain Neurological: No: Weakness, Numbness Objective Exam Vital Signs Vital Signs Date Time Temp Pulse Resp B/P (MAP) Pulse Ox O2 Delivery O2 Flow Rate FiO2 12/02/21 11:31 36.6 53 18 111/62 (78) 97 Room Air 12/02/21 08:00 0.00 11/30/21 11:46 21 Capillary Refill : Less Than 3 Seconds General Appearance: No Apparent Distress, WD/WN HEENT: PERRL/EOMI, Moist Mucous Membranes Neck: Full Range of Motion, Normal Inspection Respiratory: Lungs Clear, Normal Breath Sounds, No Respiratory Distress Cardiovascular: Regular Rate, Rhythm, No Edema Gastrointestinal: Normal Bowel Sounds, Non Tender, Soft Back: Normal Inspection, No CVA Tenderness Extremity: Normal Inspection, No Calf Tenderness Neurologic/Psychiatric: Alert, Normal Mood/Affect Skin: Normal Color, Warm/Dry Lymphatic: No Adenopathy Results/Procedures Lab Laboratory Tests 12/02/21 05:10 Patient resulted labs reviewed. Assessment/Plan Assessment and Plan Assess & Plan/Chief Complaint Acute uncomplicated pancreatitis with cholelithiasis Abd pain DM Elevated LFTs Patient scheduled for cholescytectomy today Possible discharge following surgery NANO KWAN DO 12/03/21 0518: Subjective Subjective/Events-last exam Sent for cholecystectomy Spoke with family member on phone for translation Patient doing really well Review of Systems General: Fatigue, Malaise Objective Exam General Appearance: No Apparent Distress, WD/WN Respiratory: Lungs Clear, Normal Breath Sounds Cardiovascular: Regular Rate, Rhythm Neurologic/Psychiatric: Alert, Oriented x3 Assessment/Plan Assessment and Plan Assess & Plan/Chief Complaint Cholecystectomy Supervisory-Addendum Brief Verification & Attestation Participated in pt care: history, MDM, physical Personally performed: exam, history, MDM, supervision of care Care discussed with: Medical Student Procedures: n/a Results interpretation: Verified all documentation Verification and Attestation of Medical Student E/M Service A medical student performed and documented this service in my presence. I reviewed and verified all information documented by the medical student and made modifications to such information, when appropriate. I personally performed the physical exam and medical decision making. Nano Kwan Dec 03, 2021,05:17 ORESTES AKERS Dec 02, 2021 11:55 NANO KWAN DO Dec 03, 2021 05:18
[2021-12-02] MEDS: LACTATED RINGERS 1,000 ML IV PRN ×2 (12:05→13:00)
[2021-12-02] MEDS ORDERED: ceFAZolin INJECTION 2,000 MG ONE (12:13)
[2021-12-02] MEDS ORDERED: IOHEXOL 300 MG/ML 30 ML (OMNIPAQUE 300) VIAL IV ONE (12:45)
[2021-12-02] MEDS ORDERED: ceFAZolin INJECTION 1,000 MG VIAL IV ONE (12:45)
[2021-12-02] MEDS ORDERED: GLYCOPYRROLATE 0.2 MG/ML (ROBINUL) 2 ML VIAL ONE (13:32)
[2021-12-02] MEDS ORDERED: NEOSTIGMINE 3 MG/3 ML VIAL ONE (13:32)
--- NOTE | 2021-12-02 13:47 | Progress Note-Post Operative ---
Post-Operative Progess Note Surgeon (s)/Commercial Intelligence Manager (s) Surgeon EDUARDO FARLEY DO Commercial Intelligence Manager: SHERIDAN Chan Pre-Operative Diagnosis Acute cholecystitis/Cholelithiasis with pancreatitis Post-Operative Diagnosis same Procedure & Operative Findings Date of Procedure 12/02/21 Procedure Performed/Findings PROCEDURE: Laparoscopic cholecystectomy with intraoperative cholangiogram. COMPLICATIONS: None. PROCEDURE: The patient was taken to the operating suite and was prepped and draped in sterile fashion. A surgical pause was performed. Just superior to the umbilicus, a 12 mm incision was made. Dissection was taken down to the fascia, which was then scored and grasped with a Jayden and the abdomen was then entered. An 0 Vicryl suture was placed in a [id number] fashion and a Mariano trocar was placed and secured. Pneumoperitoneum was achieved. A 5mm trochar place in the subxyphoid and 2 in the right upper quadrant. Immediately upon entering noted erythema on the gallbladder and it was distended; then noted large stones. The gallbladder was then grasped at the fundus and elevated in the superior direction. Another grasper then grabbed down at Lee's pouch and pulled in the Infero-lateral direction. The cystic duct, and cystic artery were then dissected out. Clip was placed on the distal portion of the cystic duct which was then partially transected. When it was cut we got out 3 small stones. An arrow catheter was inserted into the duct. The cholangiogram was then performed. There looked like there may have been a filling defect (one small stone in the distal portion of duct; however, contrast made its way into the duodenum. Catheter removed. Clips were placed on proximal portion of the cystic duct and then the duct was then transected. Clips were placed along the proximal and distal portion of the cystic artery which was then transected. Hook cautery was used to dissect the gallbladder from the gallbladder fossa achieving hemostasis. The gallbladder was placed in an Endobag and removed through the 12 mm trocar site. The abdomen was then reinspected. Copious amounts of irrigation were used to irrigate the abdomen and there were no signs of active bleeding. Hemostasis had been achieved. The 12 mm fascial defect was then closed with the 0 Vicryl suture that had been placed in a [id number] fashion. The abdomen was then desufflated, the trocars were removed. The abdomen was then washed and dried. The skin was then closed using 4-0 Monocryl in a subcuticular fashion. The abdomen was washed and dried and Skin Affix was place over incisions. Patient tolerated the procedure well without any complications and was taken to the recovery room in stable condition. Anesthesia Type GET Estimated Blood Loss Estimated blood loss (mL): scant Specimens/Packing Specimens Removed GB and contents EDUARDO FARLEY DO Dec 02, 2021 13:47
--- NOTE | 2021-12-02 14:02 | Anesthesia-General Post-Op ---
General Patient Condition Mental Status/LOC: Same as Preop Cardiovascular: Satisfactory Nausea/Vomiting: Absent Respiratory: Satisfactory Pain: Controlled Complications: Absent Post Op Complications Complications None Follow Up Care/Instructions Patient Instructions None needed. Anesthesia/Patient Condition Patient Condition Patient is doing well, no complaints, stable vital signs, no apparent adverse anesthesia problems. No complications reported per nursing. KYAW RICE CRNA Dec 02, 2021 14:02
[2021-12-02] MEDS ORDERED: MEPERIDINE (DEMEROL) INJ 50 MG/ML IVP ONE (14:15)
[2021-12-02] MEDS ORDERED: HYDROmorphone 2 MG/ML VIAL (DILAUDID) IV ONE (14:15)
[2021-12-02] MEDS ORDERED: morphine INJ 10 MG/ML 1ML (SYR OR VIAL) IVP ONE (14:15)
[2021-12-02] MEDS ORDERED: ONDANSETRON 4 MG/2 ML (SDV) Z0FRAN IVP PRN (14:15)
[2021-12-02] MEDS ORDERED: HYDROmorphone 2 MG/ML VIAL (DILAUDID) ONE (14:18)
--- NOTE | 2021-12-02 17:53 | Diagnostic Imaging Report ---
INDICATION: Cholelithiasis, undergoing cholecystectomy. FINDINGS: Single spot as well as a cine intraoperative cholangiogram image is are submitted. There is cannulation of the extra hepatic biliary tree. Images demonstrate contrast opacification of the biliary system. Biliary tree is not significantly dilated. There are two small rounded filling defects demonstrated in the low common bile duct. There is migration of contrast around these and spillage into the duodenum. High-degree obstruction does not appear to be present. IMPRESSION: Intraoperative cholangiogram demonstrates a nondilated extrahepatic biliary tree. However, there are two small rounded filling defects in low common bile duct. Indeterminate whether these are potential air bubbles versus small gallstones. Fluoroscopic time: 20.3 seconds. Dictated by: Dictated on workstation # [id number]
[2021-12-03 00:20] VITALS: BP 111/70
[2021-12-03] MEDS: inSUlin ASPART (NovoLOG) 1 UNIT/0.01 ML (CHARGE PER UNIT) SC SCH ×2 (00:49→05:59)
[2021-12-03] MEDS: METOCLOPRAMIDE INJ 10 MG/2 ML (REGLAN) IVP SCH ×2 (00:56→06:50)
[2021-12-03 04:36] VITALS: BP 108/65
[2021-12-03 05:37] LABS: BASOPHILS % (AUTO) 0 % (0-10); EOSINOPHILS # (AUTO) 0.4 10^3/uL (0.0-0.3); EOSINOPHILS % (AUTO) 6 % (0-10); HEMATOCRIT 32 % (35-52); HEMOGLOBIN 10.6 g/dL (11.5-16.0); LYMPHOCYTES % (AUTO) 26 % (12-44); MEAN CORPUSCULAR HEMOGLOBIN 28 pg (25-34); MEAN CORPUSCULAR HGB CONC 33 g/dL (32-36); MEAN CORPUSCULAR VOLUME 84 fL (80-99); MEAN PLATELET VOLUME 9.7 fL (9.0-12.2); MONOCYTES # (AUTO) 0.6 10^3/uL (0.0-1.0); MONOCYTES % (AUTO) 8 % (0-12); NEUTROPHILS # (AUTO) 4.7 10^3/uL (1.8-7.8); NEUTROPHILS % (AUTO) 60 % (42-75); PLATELET COUNT 341 10^3/uL (130-400); WHITE BLOOD COUNT 7.8 10^3/uL (4.3-11.0)
[2021-12-03 05:53] LABS: ALBUMIN 3.1 GM/DL (3.2-4.5); BILIRUBIN,TOTAL 0.4 MG/DL (0.1-1.0); CALCIUM 8.3 MG/DL (8.5-10.1); CREATININE SERUM 0.89 MG/DL (0.60-1.30); POTASSIUM 3.9 MMOL/L (3.6-5.0); TOTAL PROTEIN 6.6 GM/DL (6.4-8.2)
[2021-12-03] MEDS ORDERED: OXC5T PO (06:39)
--- NOTE | 2021-12-03 06:40 | Discharge Summary ---
Discharge Summary Hospital Course Was the Problem List Reviewed?: Yes Problems/Dx: (1) Acute pancreatitis Status: Acute Qualifiers: Qualified Codes: K85.90 - Acute pancreatitis without necrosis or infection, unspecified (2) Cholelithiasis Status: Acute Qualifiers: Qualified Codes: K80.20 - Calculus of gallbladder without cholecystitis w [facility] obstruction Hospital Course Date of Admission: Nov 30, 2021 at 10:53 Admission Diagnosis : Family Physician/Provider: [place] [place] Date of Discharge: 12/03/21 Discharge Diagnosis: [ ] Hospital Course: 36 yo F presented to the ED on 11/30 with c/o 12/09 diffuse postprandial abd pain that radiated to her chest that started 1 week ago and has been worsening. Pt had a CT ABD/Pelvis on 11/30 that showed acute uncomplicated pancreatitis with cholelithiasis. Pt was admitted for acute pancreatitis and cholelithiasis. Work up found an elevated lipase, WBC, and AST/ALT and ALP. Pt was placed on IVF, oxycodone (10mg prn), hydromorphone (0.5mg prn), and pantoprazole (40mg) to stabilize for cholescytecomy today. Pt's lipase, WBC, AST/ALT and ALP have all trended down and patient currently denies any pain. Labs and Pending Lab Test: Laboratory Tests 12/02/21 11:06: Glucometer 140H 12/02/21 17:45: Glucometer 111H 12/02/21 23:50: Glucometer 139H 12/03/21 05:10: White Blood Count 7.8, Red Blood Count 3.81, Hemoglobin 10.6L, Hematocrit 32L, Mean Corpuscular Volume 84, Mean Corpuscular Hemoglobin 28, Mean Corpuscular Hemoglobin Concent 33, Red Cell Distribution Width 11.8, Platelet Count 341, Mean Platelet Volume 9.7, Immature Granulocyte % (Auto) 0, Neutrophils (%) (Auto) 60, Lymphocytes (%) (Auto) 26, Monocytes (%) (Auto) 8, Eosinophils (%) (Auto) 6, Basophils (%) (Auto) 0, Neutrophils # (Auto) 4.7, Lymphocytes # (Auto) 2.0, Monocytes # (Auto) 0.6, Eosinophils # (Auto) 0.4H, Basophils # (Auto) 0.0, Immature Granulocyte # (Auto) 0.0, Sodium Level 138, Potassium Level 3.9, Chloride Level 105, Carbon Dioxide Level 23, Anion Gap 10, Blood Urea Nitrogen 7, Creatinine 0.89, Estimat Glomerular Filtration Rate 85, BUN/Creatinine Ratio 8, Glucose Level 123H, Calcium Level 8.3L, Corrected Calcium 9.0, Total Bilirubin 0.4, Aspartate Amino Transf (AST/SGOT) 49H, Alanine Aminotransferase (ALT/SGPT) 86H, Alkaline Phosphatase 118, Total Protein 6.6, Albumin 3.1L, Lipase 26 Microbiology 12/01/21 MRSA Screen - Final, Complete MRSA not isolated 11/30/21 Urine Culture - Final, Complete Gram Pos Mixed Bacterial Elayne Home Meds Active Reported Pantoprazole Sodium 40 Mg Tablet.dr 40 Mg PO DAILY Assessment/Pt Instructions PCP 1 week Post op appt per Dr Lee Discharge Planning: <30 minutes discharge planning Discharge Instructions Discharge Diet: No Restrictions Discharge Physical Examination Vital Signs Vital Signs Date Time Temp Pulse Resp B/P (MAP) Pulse Ox O2 Delivery O2 Flow Rate FiO2 12/03/21 04:36 36.8 57 18 108/65 (79) 95 Room Air 12/02/21 14:30 0.50 11/30/21 11:46 21 General Appearance: No Apparent Distress, WD/WN, Chronically ill, Obese Allergies: Coded Allergies: No Known Drug Allergies (Unverified , 11/25/21) Discharge Summary Date of Admission Nov 30, 2021 at 10:53 Date of Discharge Discharge Date: Dec 03, 2021 Admission Diagnosis Assessment: Acute pancreatitis Abnormal gallbladder on scans DM Elevated LFT's Plan: Pain meds IVF Monitor closely Discharge Diagnosis Cholecystectomy KENNY KWAN DO Dec 03, 2021 06:39
[2021-12-03 07:50] VITALS: BP 107/58
[2021-12-03] MEDS: PANTOPRAZOLE 40 MG (PROTONIX) VIAL IV SCH (08:10)
--- NOTE | 2021-12-03 08:10 | Progress Note - Surgery ---
Subjective Date Seen by a Provider: Dec 03, 2021 Time Seen by a Provider: 07:05 Subjective/Events-last exam POD1 from cholecystectomy. Pt is lying in bed comfortably after just waking up. Pt called a relative to help translate. She reports 4/10 pain in the RUQ that feels sore, achy, and tender to palpation. She winced at my auscultation and palpation of her abdomen. Her incisions are clean, dry, and intact. Pt reports being able to ambulate to bathroom. Urinated this AM without pain or redness. Has not had a BM or flatus since surgery. She denies any other complains such as chest pain, shortness of breath, N/V, or fever with chills. She ate salmon and salad for dinner last night and kept it down. Slept well last night. Pt reports no other issues. Review of Systems General: No Chills, No Night Sweats HEENT: No Head Aches, No Visual Changes Pulmonary: No Dyspnea, No Cough Cardiovascular: No: Chest Pain, Lt Headedness Gastrointestinal: Abdominal Pain (RUQ tender); No: Nausea, Vomiting Genitourinary: No Dysuria, No Hematuria Objective Exam Vital Signs Date Time Temp Pulse Resp B/P (MAP) Pulse Ox O2 Delivery O2 Flow Rate FiO2 12/03/21 07:50 36.3 72 18 107/58 (74) 93 Room Air 12/03/21 04:36 36.8 57 18 108/65 (79) 95 Room Air 12/03/21 00:20 36.7 58 18 111/70 (84) 95 Room Air 12/02/21 19:32 36.5 73 18 114/56 (75) 97 Room Air 12/02/21 15:24 36.3 56 18 110/69 (83) 97 12/02/21 14:55 15 103/57 (72) 95 Room Air 12/02/21 14:54 Room Air 12/02/21 14:51 36.4 15 105/54 (71) 95 Room Air 12/02/21 14:45 Room Air 12/02/21 14:40 14 102/53 (69) 94 Room Air 12/02/21 14:35 Room Air 12/02/21 14:30 19 114/57 (76) 100 OxyMask 0.50 12/02/21 14:20 OxyMask 2.00 12/02/21 14:20 20 105/78 (87) 100 OxyMask 2.00 12/02/21 14:10 11 119/65 (83) 100 OxyMask 4.00 12/02/21 14:05 OxyMask 8.00 12/02/21 14:00 15 112/73 (86) 100 OxyMask 8.00 12/02/21 13:53 OxyMask 8.00 12/02/21 13:53 36.1 16 100/52 (68) 98 OxyMask 8.00 12/02/21 11:31 36.6 53 18 111/62 (78) 97 Room Air I & O 12/03/21 07:00 Intake Total 1120 ml Output Total 1400 ml Balance -280 ml Capillary Refill : Less Than 3 SecondsLess Than 3 Seconds General Appearance: No Apparent Distress, WD/WN HEENT: PERRL/EOMI, Moist Mucous Membranes; No Scleral Icterus (L), No Scleral Icterus (R) Neck: Non Tender, Supple; No Lymphadenopathy (L), No Lymphadenopathy (R) Respiratory: Lungs Clear, Normal Breath Sounds Cardiovascular: Regular Rate, Rhythm, No Murmur Peripheral Pulses: 2+ Radial Pulses (R), 2+ Radial Pulses (L) Gastrointestinal: soft, no organomegaly, tenderness (RUQ 4/10 pain on palpation), hernia (small umbilical) Extremity: No Calf Tenderness, No Pedal Edema Neurologic/Psychiatric: Alert, Normal Mood/Affect; No Facial Droop Skin: Normal Color, Warm/Dry, Other (incisions are clean, dry and intact) Lymphatic: No Adenopathy (cervical) Results Lab Laboratory Tests 12/02/21 11:06: Glucometer 140H 12/02/21 17:45: Glucometer 111H 12/02/21 23:50: Glucometer 139H 12/03/21 05:10: White Blood Count 7.8, Red Blood Count 3.81, Hemoglobin 10.6L, Hematocrit 32L, Mean Corpuscular Volume 84, Mean Corpuscular Hemoglobin 28, Mean Corpuscular Hemoglobin Concent 33, Red Cell Distribution Width 11.8, Platelet Count 341, Mean Platelet Volume 9.7, Immature Granulocyte % (Auto) 0, Neutrophils (%) (Auto) 60, Lymphocytes (%) (Auto) 26, Monocytes (%) (Auto) 8, Eosinophils (%) (Auto) 6, Basophils (%) (Auto) 0, Neutrophils # (Auto) 4.7, Lymphocytes # (Auto) 2.0, Monocytes # (Auto) 0.6, Eosinophils # (Auto) 0.4H, Basophils # (Auto) 0.0, Immature Granulocyte # (Auto) 0.0, Sodium Level 138, Potassium Level 3.9, Chloride Level 105, Carbon Dioxide Level 23, Anion Gap 10, Blood Urea Nitrogen 7, Creatinine 0.89, Estimat Glomerular Filtration Rate 85, BUN/Creatinine Ratio 8, Glucose Level 123H, Calcium Level 8.3L, Corrected Calcium 9.0, Total Bilirubin 0.4, Aspartate Amino Transf (AST/SGOT) 49H, Alanine Aminotransferase (ALT/SGPT) 86H, Alkaline Phosphatase 118, Total Protein 6.6, Albumin 3.1L, Lipase 26 Microbiology 12/01/21 MRSA Screen - Final, Complete MRSA not isolated 11/30/21 Urine Culture - Final, Complete Gram Pos Mixed Bacterial Elayne Assessment/Plan Assessment/Plan Assessment/Plan Cholelithiasis - POD 1 from cholecystectomy Pancreatitis - resolved lipase 26 today Transaminitis- improving AST and ALT Hyperglycemia - 123 this morning UTI Pt is doing well postoperatively. She is voiding urine without issue. Has not had BM or flatus. Pancreatitis seems resolved with lipase of 26 and WBC count of 7.8. Plan is to discharge today. JEOVANY BA Dec 03, 2021 08:10
[2021-12-03] MEDS: DOCUSATE SODIUM 100 MG (COLACE) CAP PO SCH (08:13)
[2021-12-03] MEDS: SENNOSIDES 8.6 MG (SENOKOT) TAB PO SCH (08:13)
[2021-12-03] MEDS: D5 NS 1000 ML IV SOLUTION 1,000 ML IV SCH (08:58)
[2021-12-03 10:58] VITALS: BP 107/58
== END 2021-12-03 10:55 | disposition home or self-care (01) | DRG 417 ==
LOC: EDUNIT# 07:38 → ER 07:39 → 4TH 10:53
PROVIDERS: ADMIT Internal Medicine; ATTEND Internal Medicine
PROC: 0FT44ZZ Resection of Gallbladder, Percutaneous Endoscopic Approach (ICD-10-PCS; principal; 2021-11-30)
PROC: BF522Z0 Other Imaging of Gallbladder using Fluorescing Agent, Intraoperative (ICD-10-PCS; 2021-11-30)
DX: K80.00 Calculus of gallbladder with acute cholecystitis without obstruction (principal); K85.10 Biliary acute pancreatitis without necrosis or infection; N39.0 Urinary tract infection, site not specified; E11.65 Type 2 diabetes mellitus with hyperglycemia
CPT/HCPCS: 36415; 74176; 76000; 76705; 80053; 81000; 82947; 83690; 84478; 84703; 85025; 87081; 87088